=== PATIENT | male | born 1950 | race Caucasian/White ===

== ENCOUNTER 2025-05-18 15:05 | Emergency (ER) | payer MEDICARE, OTHER ==
[~2025-05-18] VITALS: Ht 188 cm; Wt 124.7 kg
[2025-05-18 16:12] VITALS: BP 111/70; PULSE 60; RESP 18; TEMP 97.9; O2SAT 96
[2025-05-18] MEDS ORDERED: BOOSTRIX TDAP IM ONE (16:12)
[2025-05-18] MEDS: BOOSTRIX TDAP IM ONE (16:16)
== END 2025-05-18 16:29 | disposition home or self-care (01) ==
LOC: ER 15:05
DX: S61.217A Laceration without foreign body of left little finger without damage to nail, initial encounter (principal); W26.0XXA Contact with knife, initial encounter; Y93.89 Activity, other specified; Y92.89 Other specified places as the place of occurrence of the external cause; Y99.8 Other external cause status
CPT/HCPCS: 12001; 90471; 90715; 99283